=== PATIENT | female | born 1955 | race Caucasian/White ===

== ENCOUNTER 2018-01-11 17:40 | Outpatient (REF) | payer BC, SELFPAY ==
[2018-01-11 21:48] LABS: Cholesterol 239 mg/dL (50-200); HDL Cholesterol 77 mg/dL (40-60); LDL CHOLESTEROL 149 mg/dL (<100); Triglyceride 44 mg/dL (30-150)
== END 2018-01-11 18:00 ==
LOC: NCHCN 17:40
PROVIDERS: Visit Provider Registered Nurse
DX: Z00.00 Encounter for general adult medical examination without abnormal findings (principal); Z13.220 Encounter for screening for lipoid disorders
CPT/HCPCS: 80061; 83721

== ENCOUNTER 2018-02-26 16:04 | Outpatient (REF) | payer BC, SELFPAY ==
--- NOTE | 2018-02-26 14:00 | SKI_PTH ---
PATIENT: BENITO ROSE LOC: [facility] U#:[id number] AGE/SX: 62/F ROOM: RE02/26/[address]: Giovanna Cottrell : 1955 BED: DIS: 02/26/2018 SPEC #: [id number] RECD: 02/27/18 12:48 STATUS: ARMANDO REQ #: [id number] MEME: 02/26/18 14:[address]: Giovanna Cottrell DEPT: Surgical Specimen RECD BY: Narcisa Simmons ENTERED: 02/27/18 12:48 SP TYPE: KANG IYER DR: Gustavo Navarro Tissues: 1 - SKIN BIOPSY(SHAVE/PUNCH) Procedures: SKIN LEVEL 4 Comments: [id number]
== END 2018-02-26 16:24 ==
LOC: NCHCN 16:04
PROVIDERS: Visit Provider Registered Nurse
DX: L82.1 Other seborrheic keratosis (principal)
CPT/HCPCS: 88305

== ENCOUNTER 2019-11-27 16:04 | Outpatient (REF) | payer BC, SELFPAY ==
[2019-11-27 22:05] LABS: Calculated LDL 129 mg/dL (<100); Cholesterol 212 mg/dL (<200); HDL Cholesterol 68 mg/dL (40-60); Triglyceride 75 mg/dL (<150)
== END 2019-11-27 16:24 ==
LOC: NCHCN 16:04
PROVIDERS: Visit Provider Registered Nurse
DX: Z00.00 Encounter for general adult medical examination without abnormal findings (principal); R00.2 Palpitations
CPT/HCPCS: 80061

== ENCOUNTER 2020-01-09 19:01 | Outpatient (REF) | payer BC, SELFPAY ==
--- NOTE | 2020-01-09 16:50 | PAPFT_PTH ---
PATIENT: BENITO ROSE LOC: [facility] U#:[id number] AGE/SX: 64/F ROOM: RE01/09/[address]: Giovanna Cottrell : 1955 BED: DIS: 01/09/2020 SPEC #: [id number] RECD: 01/10/20 12:45 STATUS: ARMANDO REQ #: [id number] MEME: 01/09/20 16:[address]: Giovanna Cottrell DEPT: [facility] Cytology RECD BY: Narcisa Simmons ENTERED: 01/10/20 12:46 SP TYPE: PAPFT OTHR DR: Gustavo Navarro Tissues: 1 - CX/ENDOCX FOR PAP SMEARS Procedures: PAP THIN PREP/[facility] Screening Comments: [id number] (UNSATISFACTORY FOR EVALUATION)
== END 2020-01-09 19:21 ==
LOC: NCHCN 19:01
PROVIDERS: Visit Provider Registered Nurse
DX: Z12.4 Encounter for screening for malignant neoplasm of cervix (principal); R87.615 Unsatisfactory cytologic smear of cervix
CPT/HCPCS: 88142